=== PATIENT | female | born 1990 | race American Indian/Alaskan Native ===

== ENCOUNTER 2018-10-20 08:53 | Inpatient (IN) | payer MEDICAID ==
[2018-10-20] MEDS ORDERED: MINERAL OIL PO PRN (11:08)
[2018-10-20] MEDS ORDERED: SUBLIMAZE IV PRN (11:08)
[2018-10-20] MEDS ORDERED: BRETHINE IVP PRN (11:08)
[2018-10-20] MEDS ORDERED: BRETHINE SUB-Q PRN (11:08)
[2018-10-20] MEDS ORDERED: PHENERGAN PO PRN ×2 (11:08→22:44)
[2018-10-20] MEDS ORDERED: LACTATED RINGERS 1,000 ML ONE (11:08)
[2018-10-20] MEDS ORDERED: STADOL IV PRN (11:08)
[2018-10-20] MEDS ORDERED: XYLOCAINE 2% INFILTRATI ONE (11:08)
[2018-10-20] MEDS ORDERED: ZOFRAN IV PRN ×2 (11:08→22:44)
--- NOTE | 2018-10-20 11:08 | History and Physical Report ---
History of Present Illness Date of examination: 10/20/18 Date of admission: 10/20/18 08:53 Chief complaint: Induction of labor History of present illness: Pt is a 28yo BF EDC 10/24/18; EGA 39 3/7 weeks presents for induction of labor due to Chronic hypertension per [facility]. She received care at [facility] since 14 weeks and co-managed by SUSANNA. records are available and GBS is Negative Past History Past Medical History: heart disease (heart murmer), hypertension, other (Morbid obesity) Past Surgical History: no surgical history Social history: no significant social history, - Obstetrical History Expected Date of Delivery: 10/24/18 Actual Gestation: 39 Week(s) 3 Day(s) : 4 Medications and Allergies Allergies Allergy/AdvReac Type Severity Reaction Status Date / Time No Known Allergies Allergy Verified 10/13/18 22:31 Home Medications Medication Instructions Recorded Confirmed Last Taken Type Vit,Calc76/Iron/Folic 1 tab PO DAILY 10/13/18 10/15/18 10/15/18 History [Pnv 29-1 Tablet] Review of Systems All systems: negative - Vital Signs Vital signs: Vital Signs Pulse Pulse Ox 108 H 100 10/20/18 10:14 10/20/18 10:14 Temp Pulse Resp BP Pulse Ox 98 H 140/64 99 10/20/18 11:04 10/20/18 10:37 10/20/18 11:04 - Physical Exam Cardiovascular: Regular rate Lungs: Positive: Clear to auscultation Abdomen: Positive: normal appearance, soft Genitourinary (Female): Positive: normal external genitalia Uterus: Positive: enlarged Extremities: Positive: normal - Obstetrical FHR: category 1 Uterine Contraction Monitor Mode: External Cervical Dilatation: 4 (per nurse) Cervical Effacement Percentage: 50 (per nurse) station: -3 Uterine Contraction Pattern: Irregular Uterine Tone Measurement Phase: Contraction Uterine Contraction Intensity: Mild Results Result Diagrams: 10/20/18 10:45 All other labs normal. Assessment and Plan - Patient Problems (1) 39 weeks gestation of Onset Date: 10/20/18 Current Visit: Yes Status: Acute Plan to address problem: A: IUP @ 39 3/7 weeks Hypertension P: Admit for pitocin induction of labor Expectant vaginal delivery
[2018-10-20] MEDS: LACTATED RINGERS 1,000 ML IV SCH ×2 (11:25→18:47)
[2018-10-20 11:34] LABS: Hematocrit 30.6 % (30.3-42.9); Hemoglobin 9.4 gm/dl (10.1-14.3); Mean Corpuscular HGB Conc 31 % (30-34); Mean Corpuscular Volume 72 fl (79-97); Platelet Count 263 K/mm3 (140-440); Red Blood Count 4.27 M/mm3 (3.65-5.03); Red Cell Distribution Width 19.6 % (13.2-15.2)
[2018-10-20] MEDS ORDERED: PITOCin/NS 30 UNIT/500ML 30 UNITS/500 ML BAG IV SCH (12:00)
[2018-10-20] MEDS ORDERED: PITOCin/NS 20 UNIT/1000ML DRIP 20 UNITS/1,000 ML BAG IV SCH ×2 (12:00→23:00)
[2018-10-20] MEDS: PITOCin/NS 30 UNIT/500ML 30 UNITS/500 ML BAG IV SCH ×5 (12:12→18:47)
--- NOTE | 2018-10-20 22:42 | Procedure Note ---
OB Delivery Note - Delivery Date of Delivery: 10/20/18 Surgeon: BERNABE PALMER Estimated blood loss: 100cc - Vaginal Delivery presentation: vertex Delivery position: OA Intrapartum events: none Delivery induction: oxytocin Delivery augmentation: rupture of membranes, pitocin Delivery monitor: external FHT, external uterine Route of delivery: Delivery placenta: spontaneous Delivery cord: 3 umbilical vessels Episiotomy: none Delivery laceration: none Anesthesia: intravenous Delivery comments: delivered OA and placed on Mom's chest for stuy-hi-[id number] bonding and delayed cord clamping, cut by Dad - A at 1 minute: 9 at 5 minutes: 9 Infant Gender: Female ([id number])
[2018-10-20] MEDS ORDERED: BENADRYL PO PRN (22:44)
[2018-10-20] MEDS ORDERED: PHENERGAN PR PRN (22:44)
[2018-10-20] MEDS ORDERED: NORCO 5/325 PO PRN (22:44)
[2018-10-20] MEDS ORDERED: MILK OF MAGNESIA PO PRN (22:44)
[2018-10-20] MEDS ORDERED: TUCKS PAD TP PRN (22:44)
[2018-10-20] MEDS ORDERED: TYLENOL PO PRN (22:44)
[2018-10-20] MEDS ORDERED: DULCOLAX PR PRN (22:44)
[2018-10-20] MEDS ORDERED: LANSINOH TP PRN (22:44)
[2018-10-20] MEDS ORDERED: SODIUM CHLORIDE FLUSH SYRINGE 10 ML IV PRN (23:00)
[2018-10-20] MEDS: IBUPROFEN PO SCH (23:42)
[2018-10-21] MEDS: IBUPROFEN PO SCH (05:19)
--- NOTE | 2018-10-21 10:01 | Progress Note ---
Assessment and Plan - Patient Problems (1) 39 weeks gestation of Onset Date: 10/20/18 Current Visit: Yes Status: Resolved (2) (normal spontaneous vaginal delivery) Onset Date: 10/21/18 Current Visit: Yes Status: Resolved Plan to address problem: A: S/P - PPD #1 Doing well Asymptomatic anemia - stable P: Anticipate discharge tomorrow. Subjective - Subjective Date of service: 10/21/18 Principal diagnosis: s/p - PPD #1 Interval history: Pt is feeling well without complaints. Bleeding improved. Patient reports: appetite normal, voiding normally, pain well controlled, flatus, ambulating normally, no dizzy ambulation, no nauseated [place]: doing well, nursing well, bottle feeding Objective - Vital Signs Latest vital signs: Vital Signs Temp Pulse Resp BP BP Pulse Ox 10/21/18 08:00 98 F 94 H 18 126/82 10/21/18 06:38 97.8 F 91 H 20 136/77 96 10/21/18 01:12 98.7 F 95 H 20 141/84 100 10/20/18 23:55 90 133/61 10/20/18 22:50 98 H 144/87 10/20/18 22:36 89 127/60 10/20/18 22:25 100 H 86 10/20/18 22:21 90 98 10/20/18 22:14 85 100 10/20/18 21:06 88 166/86 10/20/18 20:50 89 151/84 10/20/18 20:36 87 145/71 10/20/18 20:21 96 H 146/82 10/20/18 20:20 104 H 100 10/20/18 20:15 91 H 100 10/20/18 20:10 101 H 100 10/20/18 20:07 96 H 156/78 10/20/18 20:05 85 100 10/20/18 20:00 92 H 100 10/20/18 19:55 88 100 10/20/18 19:50 91 H 143/84 99 10/20/18 19:45 97 H 100 10/20/18 19:40 89 100 10/20/18 19:38 98.7 F 18 10/20/18 19:36 96 H 168/84 10/20/18 19:35 83 100 10/20/18 19:33 89 145/90 10/20/18 19:30 100 H 100 10/20/18 13:47 135/64 10/20/18 13:46 96 H 135/64 10/20/18 12:33 97.7 F 65 16 140/65 10/20/18 12:09 117 H 100 10/20/18 12:04 96 H 100 10/20/18 11:59 82 100 10/20/18 11:54 96 H 99 10/20/18 11:49 94 H 99 10/20/18 11:44 85 100 10/20/18 11:39 92 H 100 10/20/18 11:34 89 99 10/20/18 11:29 89 99 10/20/18 11:24 92 H 98 10/20/18 11:19 94 H 100 10/20/18 11:14 90 100 10/20/18 11:09 91 H 100 10/20/18 11:04 98 H 99 10/20/18 10:59 92 H 99 10/20/18 10:54 93 H 100 10/20/18 10:49 96 H 100 10/20/18 10:44 103 H 100 10/20/18 10:39 97 H 100 10/20/18 10:37 98 H 140/64 10/20/18 10:34 101 H 100 10/20/18 10:29 98 H 100 10/20/18 10:24 108 H 100 10/20/18 10:19 105 H 100 10/20/18 10:14 108 H 100 Intake and Output 10/20/18 10/21/18 10/21/18 22:59 06:59 14:59 Intake Total 997.300 120 Output Total 600 800 Balance 997.300 -600 -680 Intake: IV 997.300 Lactated Ringers 1,000 ml 920.833 @ 125 mls/hr IV DIRECT TANNER Rx#:[id number] PITOCin/NS 30 UNIT/500ML 76.467 30 units In 500 ml @ 4 mls/hr IV TITR TANNER Rx#: [id number] Oral 120 Output: Urine 600 800 Void 600 800 Other: Total, Intake Amount 120 Total, Output Amount 600 800 - Exam Breasts: Present: deferred Abdomen: Present: normal appearance, soft Uterus: Present: normal, firm, fundal height below umbilicus Extremities: Present: normal - Labs Labs: Abnormal lab results 10/20/18 10/20/18 Range/Units 10:45 17:54 Hgb 9.4 L (10.1-14.3) gm/dl MCV 72 L (79-97) fl MCH 22 L (28-32) pg RDW 19.6 H (13.2-15.2) % POC Glucose 61 L (70-105) Laboratory Tests 10/20/18 10/20/18 10/20/18 10:45 10:45 10:45 WBC 8.8 RBC 4.27 Hgb 9.4 L Hct 30.6 MCV 72 L MCH 22 L MCHC 31 RDW 19.6 H Plt Count 263 POC Glucose RPR Nonreactive Blood Type B POSITIVE Antibody Screen Negative 10/20/18 10/21/18 17:54 10:47 WBC RBC Hgb 9.0 L Hct 28.2 L MCV MCH MCHC RDW Plt Count POC Glucose 61 L RPR Blood Type Antibody Screen
[2018-10-21] MEDS: PRENATAL VITAMIN PO SCH (11:04)
[2018-10-21] MEDS: COLACE PO SCH (11:04)
[2018-10-21] MEDS: FEOSOL PO SCH (11:04)
[2018-10-21 11:18] LABS: Hematocrit 28.2 % (30.3-42.9)
[2018-10-21] MEDS ORDERED: M-M-R II VACCINE SUB-Q ONE (22:44)
[2018-10-22] MEDS ORDERED: BOOSTRIX IM ONE (06:00)
[2018-10-22] MEDS: COLACE PO SCH (09:10)
[2018-10-22] MEDS: PRENATAL VITAMIN PO SCH (09:10)
[2018-10-22] MEDS: FEOSOL PO SCH (09:11)
[2018-10-22 09:27] VITALS: BP 140/77
--- NOTE | 2018-10-22 10:14 | Progress Note ---
Assessment and Plan - Patient Problems (1) 39 weeks gestation of Onset Date: 10/20/18 Current Visit: Yes Status: Resolved (2) (normal spontaneous vaginal delivery) Onset Date: 10/21/18 Current Visit: Yes Status: Resolved Plan to address problem: A: S/P - PPD #2 Doing well Asymptomatic anemia - stable P: May go home today. Subjective - Subjective Date of service: 10/22/18 Principal diagnosis: s/p - PPD #2 Interval history: Pt is feeling well without complaints. Patient reports: appetite normal, voiding normally, pain well controlled, flatus, ambulating normally, no dizzy ambulation, no nauseated : doing well, nursing well Objective - Vital Signs Latest vital signs: Vital Signs Temp Pulse Resp BP BP Pulse Ox 10/22/18 08:40 98.7 F 83 18 140/77 10/22/18 00:46 144/89 10/22/18 00:44 98.7 F 95 H 20 150/81 100 10/21/18 15:13 98.8 F 103 H 18 143/85 99 Intake and Output 10/21/18 10/22/18 10/22/18 22:59 06:59 14:59 Intake Total 480 240 320 Balance 480 240 320 Intake: Oral 480 240 320 Other: Total, Intake Amount 240 240 320 # Voids Void 1 1 1 - Exam Lungs: Present: Clear to auscultation Abdomen: Present: normal appearance, soft Uterus: Present: normal, firm, fundal height below umbilicus Extremities: Present: normal - Labs Labs: Abnormal lab results 10/21/18 Range/Units 10:47 Hgb 9.0 L (10.1-14.3) gm/dl Hct 28.2 L (30.3-42.9) %
--- NOTE | 2018-10-22 10:14 | Discharge Summary ---
Providers - Providers Date of Admission: 10/20/18 08:53 Date of discharge: 10/22/18 Attending physician: BERNABE PALMER Primary care physician: BERNABE PALMER Hospitalization Reason for admission: induction of labor, IUP at term Delivery: Episiotomy: none Laceration: none Other procedures: none complications: none Discharge diagnosis: IUP at term delivered [place] baby: female Hospital course: Unremarkable. Condition at discharge: Good Disposition: DC-01 TO HOME OR SELFCARE - Discharge Diagnoses (1) 39 weeks gestation of Status: Resolved (2) (normal spontaneous vaginal delivery) Status: Resolved Plan - Discharge Medications Prescriptions: Ferrous Sulfate [Feosol 325 MG tab] 325 mg PO BID #60 tablet Ibuprofen [Motrin 600 MG tab] 600 mg PO Q6HR #30 tablet Vit-Fe Fumar-FA [ Vitamin] 1 each PO QDAY #30 tablet - Provider Discharge Summary Activity: routine, no sex for 6 weeks, no heavy lifting 4 weeks, no strenuous exercise Diet: routine Instructions: routine Additional instructions: [] Smoking cessation referral if applicable(refer to patient education folder for contact #) [] Refer to [facility]'s [facility] Booklet Call your doctor immediately for: * Fever > 100.5 * Heavy vaginal bleeding ( >1 pad per hour) * Severe persistent headache * Shortness of breath * Reddened, hot, painful area to leg or breast * Drainage or odor from incision. * Keep incision clean and dry at all times and follow doctor's instructions regarding bathing/showering - Follow up plan Follow up: CHELY MCKEON CNM [Advanced Practice Nurse] - 14 Days BERNABE PALMER MD [Primary Care Provider] - 14 Days
[2018-10-22] MEDS: IBUPROFEN PO SCH (11:37)
== END 2018-10-22 13:36 | disposition home or self-care (01) | DRG 774 ==
LOC: LD 08:53 → OB 10-21 01:30
PROVIDERS: ADMIT Obstetrics & Gynecology; ATTEND Obstetrics & Gynecology
PROC: 10E0XZZ Delivery of Products of Conception, External Approach (ICD-10-PCS; principal; 2018-10-20)
PROC: 3E033VJ Introduction of Other Hormone into Peripheral Vein, Percutaneous Approach (ICD-10-PCS; 2018-10-20)
PROC: 3E0234Z Introduction of Serum, Toxoid and Vaccine into Muscle, Percutaneous Approach (ICD-10-PCS; 2018-10-21)
DX: O10.92 Unspecified pre-existing hypertension complicating childbirth (principal); O99.02 Anemia complicating childbirth; D64.9 Anemia, unspecified; O99.214 Obesity complicating childbirth; E66.01 Morbid (severe) obesity due to excess calories; Z3A.39 39 weeks gestation of pregnancy; Z37.0 Single live birth; Z23 Encounter for immunization
CPT/HCPCS: 36415; 82962; 85014; 85018; 85027; 86592; 86850; 86900; 86901; 96360; G0378; J2590; J3010; J7120